=== PATIENT | male | born 1950 | race Caucasian/White ===

== ENCOUNTER 2023-07-21 12:13 | Outpatient (CLI) | payer MEDICARE, SELFPAY ==
--- NOTE | ~2023-07-21 | MR_ITS ---
EXAMINATION: MR shoulder RT wo con, MR scapula RT wo con DATE: 07/21/2023 13:23 INDICATION: Right shoulder pain TECHNIQUE: 1. Magnetic resonance imaging (MRI) of the right shoulder was performed without intravenous contrast. Sequences included axial PD-weighted FS FSE, coronal oblique PD-weighted FS FSE, coronal oblique T2- weighted FS FSE, sagittal PD-weighted FS FSE, and sagittal T1-weighted SE. 2. MRI of the right scapula was performed without intravenous contrast. Sequences include axial, sagi ttal and coronal T1-weighted FSE, sagittal and coronal T2-weighted FS FSE and axial fluid sensitive F SE STIR. COMPARISON: None. FINDINGS: Coracoacromial arch: The acromion undersurface is curved in morphology (type II). The coracoacromial ligament is normal. S evere acromioclavicular osteoarthritis. Rotator cuff: Mild supraspinatus tendinopathy without tear. Mild infraspinatus tendinopathy with very small partial -thickness tear involving less than 50% the thickness of the bursal side of the tendon along the midd le facet footplate which measures 4 mm AP and 6 mm medial to lateral. The teres minor tendon is reginaldo l. Mild subscapularis tendinopathy with additional very small measuring 3 mm craniocaudally and 5 mm medial to lateral at the superolateral margin of the lesser tuberosity footplate. There are mild hype rtrophic osteophytes along the lesser tuberosity. Normal rotator cuff muscle bulk and signal. Biceps tendon, glenoid labrum and glenohumeral cartilage: Long head of the biceps tendon is normal. superior, anterior to posterior tear of the glenoid labrum (SLAP tear) of the 12:00-10:00 position of the posterior superior glenoid labrum. There is an additio nal tear at the 6:00-4:30 position of the anteroinferior labrum. There is mild partial-thickness cart ilage loss along the inferomedial aspect of the humeral head with small marginal osteophytes but with out degenerative subchondral changes. Glenoid cartilage appears relatively preserved. Fluid: Physiologic amount of fluid in the glenohumeral joint and biceps tendon sheath. No loose osteochondr al bodies. No abnormal fluid signal in the subacromial/subdeltoid bursa to suggest bursitis. No abno rmal fluid signal at the subscapular bursa to suggest bursitis. Bones/other: Bone alignment is normal. Normal marrow signal with no edema, fracture or abnormal marrow replacing p rocess. Mild cystic change at the greater tuberosity. Remaining musculature of the shoulder girdle an d visualized right posterior chest wall and paraspinal musculature appears normal. No pathologically enlarged right axillary lymphadenopathy. IMPRESSION: 1. Mild rotator cuff tendinopathy with very small partial-thickness tears along the articular side of the medial facet insertion of the infraspinatus tendon and at the superolateral margin of the lesser tuberosity insertion of the subscapularis tendon. 2. Mild right glenohumeral osteoarthritis with tear of the posterosuperior and anteroinferior glenoid labrum. 2. Severe acromioclavicular osteoarthritis. Reviewed, dictated and finalized at location A. IMPRESSION: 1. Mild rotator cuff tendinopathy with very small partial-thickness tears along the articular side of the medial facet insertion of the infraspinatus tendon a nd at the superolateral margin of the lesser tuberosity insertion of the subsca pularis tendon. 2. Mild right glenohumeral osteoarthritis with tear of the posterosuperior and anteroinferior glenoid labrum. 2. Severe acromioclavicular osteoarthritis.
== END 2023-07-21 12:14 | disposition home or self-care (01) ==
LOC: ANHIMG 12:14
PROVIDERS: PCP Pediatrics; Visit Provider Pediatrics
DX: M75.31 Calcific tendinitis of right shoulder (principal); M19.011 Primary osteoarthritis, right shoulder; S43.431A Superior glenoid labrum lesion of right shoulder, initial encounter; X58.XXXA Exposure to other specified factors, initial encounter
CPT/HCPCS: 73218; 73221